=== PATIENT | female | born 1955 | race Caucasian/White ===

== ENCOUNTER 2016-11-05 02:19 | Emergency (ER) | payer SELFPAY ==
[~2016-11-05] VITALS: Ht 162.6 cm; Wt 87.4 kg
[2016-11-05] MEDS ORDERED: SODIUM CHLORIDE 0.9% 1,000ML IVBOLUS ONE (03:30)
[2016-11-05] MEDS ORDERED: SODIUM CHLORIDE FLUSH 10ML SYR IVF ONE (03:30)
[2016-11-05] MEDS ORDERED: PROCHLORPERAZINE 5 MG/ML, 2ML IVPush ONE (03:30)
[2016-11-05] MEDS ORDERED: DIPHENHYDRAMINE 50 MG/ML, 1ML IVPush ONE (03:30)
[2016-11-05] MEDS ORDERED: PROCHLORPERAZINE 5 MG/ML, 2ML ONE (03:31)
[2016-11-05] MEDS ORDERED: DIPHENHYDRAMINE 50 MG/ML, 1ML ONE (03:31)
[2016-11-05 03:44] VITALS: BP_DIAS 74
[2016-11-05 03:46] LABS: BLOOD UREA NITROGEN 8 mg/dL (7-18)
[2016-11-05] MEDS ORDERED: KETOROLAC 30 MG/1 ML ONE (04:14)
[2016-11-05] MEDS ORDERED: KETOROLAC 60 MG/2 ML IVPush ONE (04:30)
[2016-11-05 05:03] VITALS: BP_SYST 122
== END 2016-11-05 05:14 | disposition home or self-care (01) ==
LOC: ED 05:11
DX: G43.001 Migraine without aura, not intractable, with status migrainosus (principal)
CPT/HCPCS: 36415; 70450; 80048; 82040; 85025; 96361; 96374; 96375; 96376; 99285; J0780; J1200; J1885; J7030

== ENCOUNTER 2018-02-09 19:09 | Emergency (ER) | payer MEDICAID ==
[~2018-02-09] VITALS: Ht 162.6 cm; Wt 88.2 kg
[2018-02-09 19:11] VITALS: BP 134/89
[2018-02-09] MEDS ORDERED: PROMETHAZINE 25 MG/ML, 1ML IM ONE (20:00)
[2018-02-09] MEDS ORDERED: KETOROLAC 30 MG/1 ML IM ONE (20:00)
[2018-02-09] MEDS ORDERED: PROMETHAZINE 25 MG/ML, 1ML ONE (20:04)
[2018-02-09] MEDS ORDERED: KETOROLAC 30 MG/1 ML ONE (20:04)
== END 2018-02-09 20:49 | disposition home or self-care (01) ==
LOC: ED 19:47
DX: M47.896 Other spondylosis, lumbar region (principal); M51.36 Other intervertebral disc degeneration, lumbar region; G43.909 Migraine, unspecified, not intractable, without status migrainosus; J45.909 Unspecified asthma, uncomplicated; Z90.710 Acquired absence of both cervix and uterus; Z88.5 Allergy status to narcotic agent; Z88.0 Allergy status to penicillin; Z88.2 Allergy status to sulfonamides; Z88.8 Allergy status to other drugs, medicaments and biological substances
CPT/HCPCS: 96372; 99284; J1885; J2550